=== PATIENT | male | born 1955 | race Caucasian/White ===

== ENCOUNTER 2019-04-19 11:33 | Emergency (ER) | payer BC, OTHER ==
[2019-04-19] MEDS ORDERED: Sodium Chloride 0.9% 10 ML Syringe FLUSH PRN (11:52)
--- NOTE | 2019-04-19 11:59 | EDM.PDOC ---
ED HPI GENERAL MEDICAL PROBLEM - General Chief Complaint: Chest Pain Stated Complaint: SENT BY [facility] FOR CHEST PAIN/SOB Time Seen by Provider: 04/19/19 11:46 Source of Information: Reports: Patient History Limitations: Reports: No Limitations - History of Present Illness INITIAL COMMENTS - FREE TEXT/NARRATIVE: Patient's unfortunate 64-year-old male who presents emergent department today with complaint of chest pain. Patient reports he has had 5 episodes of exercise induced chest pain over the last month. Last episode was last evening he reports he was [facility] and when he got back to the front [facility] he had a sharp stabbing like chest pain in the left anterior chest. Patient reports this pain completely resolved with rest does not had any episodes since. History of diabetes reports he has "3 vessel heart disease". However, the patient had a remote history of a stress test and is never had a cardiac catheterization. Patient does have a history of hypertension hyperlipidemia and diabetes he has of a positive family history for cardiac disease in the mother and father. Patient went to the family practice office this morning and of course was sent here for evaluation for his chest pain. Eyes any pain this morning has no nausea no vomiting no shortness of breath. He reports that he did have another episode of the sharp stabbing like pain during exertion walking from the clinic to his car before he came to the emergency department but however when he arrived emergency his pain has resolved - Related Data Allergies Allergy/AdvReac Type Severity Reaction Status Date / Time No Known Allergies Allergy Verified 04/19/19 11:46 Home Meds: Home Meds Acetaminophen [Tylenol Extra Strength] 500 mg PO DAILY 04/19/19 [History] Aspirin 325 mg PO DAILY 04/19/19 [History] Doxazosin Mesylate [Cardura] 1 mg PO BEDTIME 04/19/19 [History] Ibuprofen [Advil] 800 mg PO ASDIRECTED 04/19/19 [History] Insulin Degludec [Tresiba] 38 unit SQ DAILY 04/19/19 [History] Rosuvastatin [Crestor] 10 mg PO DAILY 04/19/19 [History] Saxagliptin HCl [Onglyza] 2.5 mg PO DAILY 04/19/19 [History] Sertraline [Zoloft] 50 mg PO DAILY 04/19/19 [History] amLODIPine [Norvasc] 5 mg PO DAILY 04/19/19 [History] hydroCHLOROthiazide [Hydrochlorothiazide] 25 mg PO DAILY 04/19/19 [History] metFORMIN [Glucophage XR] 1,000 mg PO BIDMEALS 04/19/19 [History] ramipriL [Altace] 20 mg PO DAILY 04/19/19 [History] Past Medical History Cardiovascular History: Reports: High Cholesterol, Hypertension Endocrine/Metabolic History: Reports: Diabetes, Type II Social & Family History - Tobacco Use Smoking Status *Q: Former Smoker Used Tobacco, but Quit: Yes Month/Year Tobacco Last Used: 2015 - Recreational Drug Use Recreational Drug Use: No ED ROS GENERAL - Review of Systems Review Of Systems: See Below Constitutional: Denies: Fever, Chills Respiratory: Reports: Shortness of Breath. Denies: Cough, Sputum Cardiovascular: Reports: Chest Pain ED EXAM, GENERAL - Physical Exam Exam: See Below Exam Limited By: No Limitations General Appearance: Alert, WD/WN, Mild Distress, Obese Ears: Normal External Exam, Normal Canal, Hearing Grossly Normal, Normal TMs Nose: Normal Inspection, Normal Mucosa, No Blood Throat/Mouth: Normal Inspection, Normal Lips, Normal Teeth, Normal Gums, Normal Oropharynx, Normal Voice, No Airway Compromise Neck: Normal Inspection, Supple, Non-Tender, Full Range of Motion Respiratory/Chest: No Respiratory Distress, Lungs Clear, Normal Breath Sounds, No Accessory Muscle Use, Chest Non-Tender Cardiovascular: Normal Peripheral Pulses, Regular Rate, Rhythm, No Edema, No Gallop, No JVD, No Murmur, No Rub GI/Abdominal: Normal Bowel Sounds, Soft, Non-Tender, No Organomegaly, No Distention, No Abnormal Bruit, No Mass Back Exam: Normal Inspection, Full Range of Motion, NT Extremities: Normal Inspection, Normal Range of Motion, Non-Tender, Normal Capillary Refill, No Pedal Edema Skin Exam: Warm, Dry EKG INTERPRETATION EKG Date: 04/19/19 Time: 11:59 Rhythm: NSR Rate (Beats/Min): 73 [place]: Normal P-Wave: Present ST-T: Other (Nonspecific changes consistent with early repolarization) QT: Normal Course - Vital Signs Last Recorded V/S: Last Vital Signs Temp 36.8 C 04/19/19 11:41 Pulse 79 04/19/19 11:41 Resp 16 01/21/20 11:41 BP 179/91 H 04/19/19 11:41 Pulse Ox 97 04/19/19 11:41 - Orders/Labs/Meds Orders: Active Orders 24 hr Category Date Time Status EKG Documentation Completion [RC] ASDIRECTED Care 04/19/19 11:53 Active Saline Lock Insert [OM.PC] Stat Oth 04/19/19 11:52 Ordered EKG 12 Lead [EK] Stat Ther 04/19/19 11:52 Ordered Labs: Laboratory Tests 04/19/19 04/19/19 04/19/19 Range/Units 11:55 11:55 11:55 WBC 7.03 (4.23-9.07) K/mm3 RBC 3.98 L (4.63-6.08) M/mm3 Hgb 11.6 L (13.7-17.5) gm/dl Hct 36.2 L (40.1-51.0) % MCV 91.0 (79.0-92.2) fl MCH 29.1 (25.7-32.2) pg MCHC 32.0 L (32.2-35.5) g/dl RDW Std Deviation 42.5 (35.1-43.9) fL Plt Count 243 (163-337) K/mm3 MPV 9.1 L (9.4-12.3) fl Neut % (Auto) 56.2 (34.0-67.9) % Lymph % (Auto) 28.0 (21.8-53.1) % [place] % (Auto) 10.7 (5.3-12.2) % Eos % (Auto) 4.6 (0.8-7.0) Baso % (Auto) 0.4 (0.1-1.2) % Neut # (Auto) 3.95 (1.78-5.38) K/mm3 Lymph # (Auto) 1.97 (1.32-3.57) K/mm3 [place] # (Auto) 0.75 (0.30-0.82) K/mm3 Eos # (Auto) 0.32 (0.04-0.54) K/mm3 Baso # (Auto) 0.03 (0.01-0.08) K/mm3 PT (9.7-12.0) SECONDS INR APTT (22-31) SECONDS Sodium 136 (136-145) mEq/L Potassium 4.7 (3.5-5.1) mEq/L Chloride 101 (98-107) mEq/L Carbon Dioxide 25 (21-32) mEq/L Anion Gap 14.7 (5-15) BUN 30 H (7-18) mg/dL Creatinine 1.6 H (0.7-1.3) mg/dL Est Cr Clr Drug Dosing 47.53 mL/min Estimated GFR (MDRD) 44 (>60) mL/min BUN/Creatinine Ratio 18.8 H (14-18) Glucose 180 H (80-115) mg/dL Calcium 8.9 (8.5-10.1) mg/dL Total Bilirubin 0.4 (0.2-1.0) mg/dL AST 23 (15-37) U/L ALT 36 (16-63) U/L Alkaline Phosphatase 76 (46-116) U/L Troponin I 1.167 H* (0.00-0.056) ng/mL NT-Pro-B Natriuret Pep 248 H (0-125) pg/mL Total Protein 7.5 (6.4-8.2) g/dl Albumin 3.8 (3.4-5.0) g/dl Globulin 3.7 gm/dL Albumin/Globulin Ratio 1.0 (1-2) 04/19/19 04/19/19 Range/Units 11:55 11:55 WBC (4.23-9.07) K/mm3 RBC (4.63-6.08) M/mm3 Hgb (13.7-17.5) gm/dl Hct (40.1-51.0) % MCV (79.0-92.2) fl MCH (25.7-32.2) pg MCHC (32.2-35.5) g/dl RDW Std Deviation (35.1-43.9) fL Plt Count (163-337) K/mm3 MPV (9.4-12.3) fl Neut % (Auto) (34.0-67.9) % Lymph % (Auto) (21.8-53.1) % [place] % (Auto) (5.3-12.2) % Eos % (Auto) (0.8-7.0) Baso % (Auto) (0.1-1.2) % Neut # (Auto) (1.78-5.38) K/mm3 Lymph # (Auto) (1.32-3.57) K/mm3 [place] # (Auto) (0.30-0.82) K/mm3 Eos # (Auto) (0.04-0.54) K/mm3 Baso # (Auto) (0.01-0.08) K/mm3 PT 10.3 (9.7-12.0) SECONDS INR 0.94 APTT 26 (22-31) SECONDS Sodium (136-145) mEq/L Potassium (3.5-5.1) mEq/L Chloride (98-107) mEq/L Carbon Dioxide (21-32) mEq/L Anion Gap (5-15) BUN (7-18) mg/dL Creatinine (0.7-1.3) mg/dL Est Cr Clr Drug Dosing mL/min Estimated GFR (MDRD) (>60) mL/min BUN/Creatinine Ratio (14-18) Glucose (80-115) mg/dL Calcium (8.5-10.1) mg/dL Total Bilirubin (0.2-1.0) mg/dL AST (15-37) U/L ALT (16-63) U/L Alkaline Phosphatase (46-116) U/L Troponin I (0.00-0.056) ng/mL NT-Pro-B Natriuret Pep (0-125) pg/mL Total Protein (6.4-8.2) g/dl Albumin (3.4-5.0) g/dl Globulin gm/dL Albumin/Globulin Ratio (1-2) Meds: Medications Discontinued Medications Generic Name Dose Route Start Last Admin Trade Name Freq PRN Reason Stop Dose Admin Heparin Sodium (Porcine) 4,000 units 04/19/19 12:44 04/19/19 12:58 Heparin Sodium IVPUSH 04/19/19 12:45 4,000 units .BOLUS ONE Administration Heparin Sodium/Dextrose 25,000 units in 500 mls @ 31.162 mls/hr 04/19/19 12: 45 04/19/19 12:57 Heparin 25,000 Units In D5w 500 Ml IV 15 units/kg/hr TITRATE JADEN 31.162 mls/hr Administration Protocol 15 UNITS/KG/HR Sodium Chloride 10 ml 04/19/19 11:52 04/19/19 11:57 Saline Flush FLUSH 10 ml ASDIRECTED PRN Administration Keep Vein Open - Re-Assessments/Exams Free Text/Narrative Re-Assessment/Exam: 04/19/19 11:58 Of note, the patient had labs drawn on 10/25/2018 which showed a BUN of 31 and a creatinine of 1.6 04/19/19 12:01 Clinic note sent over shows "he had a nuclear stress test done in 2017 which showed no evidence of prior infarct or any evidence of ischemia." Free Text/Narrative Re-Assessment/Exam: 04/19/19 12:[address]Agarwall jara at [facility] in [place] who accepts patient in transfer I also discussed case with hospitalist who will be the accepting physician who accepts patient in transfer Free Text/Narrative Re-Assessment/Exam: 04/19/19 12:45 Patient reports he did take 325 mg aspirin this morning no additional aspirin given in the emergency department Departure - Departure Time of Disposition: 12:39 Disposition: DC/Tfer to Hospice-Med Fac [facility] Reason for Transfer *Q: Other (Urgent PCI) Clinical Impression: Non-STEMI (non-ST elevated myocardial infarction) Referrals: Renetta Dias MD [Primary Care Provider] - Forms: ED Department Discharge Sepsis Event Note - Evaluation Sepsis Screening Result: No Definite Risk - Focused Exam Date Exam was Performed: 04/19/19 Time Exam was Performed: 12:45
[2019-04-19] MEDS ORDERED: Heparin Sodium 5,000 Units/ML Vial IVPUSH ONE (12:44)
[2019-04-19] MEDS ORDERED: Heparin Sodium/D5W 25,000 UNITS/500 ML BAG IV SCH (12:45)
--- NOTE | 2019-04-19 12:48 | CR ---
Chest: Two views of the chest were obtained. Comparison: No previous chest x-ray. Slight linear densities are seen within the chest most likely due to areas of scarring and atelectasis. There is pleural calcification seen along the lateral right chest. Old left-sided clavicle fracture is seen which shows residual deformity but appears to be healed. Heart size and mediastinum are normal. Degenerative endplate spurring is noted within the spine with scattered disc space narrowing. Impression: 1. Findings as noted above. 2. Nothing acute is seen. Diagnostic code #2 This report was dictated in [place] Standard Time
== END 2019-04-19 14:15 | disposition hospice, inpatient (51) ==
LOC: JD.ED 11:33
DX: I21.4 Non-ST elevation (NSTEMI) myocardial infarction (principal); E11.9 Type 2 diabetes mellitus without complications; E78.00 Pure hypercholesterolemia, unspecified; I10 Essential (primary) hypertension; Z79.899 Other long term (current) drug therapy; Z79.82 Long term (current) use of aspirin; Z87.891 Personal history of nicotine dependence; Z79.4 Long term (current) use of insulin
CPT/HCPCS: 36415; 71046; 80053; 83880; 84484; 85025; 85610; 85730; 93005; 96365; 99285; J1644; 93010; 99284

== ENCOUNTER 2022-11-22 16:27 | Emergency (ER) | payer OTHER ==
[2022-11-22] MEDS ORDERED: Fluorescein 1 MG Ophth Strip EYELF ONE (17:05)
== END 2022-11-22 17:47 | disposition home or self-care (01) ==
LOC: JD.ED 16:27
DX: H20.9 Unspecified iridocyclitis (principal); E11.9 Type 2 diabetes mellitus without complications; E78.00 Pure hypercholesterolemia, unspecified; I10 Essential (primary) hypertension; Z87.891 Personal history of nicotine dependence; Z79.4 Long term (current) use of insulin; Z79.82 Long term (current) use of aspirin; Z79.899 Other long term (current) drug therapy
CPT/HCPCS: 99283